=== PATIENT | male | born 1965 | race Two or more races ===

== ENCOUNTER 2018-02-04 22:43 | Inpatient (IN) | payer OTHER ==
[~2018-02-04] VITALS: Ht 170.2 cm; Wt 75.9 kg
[2018-02-04 23:32] LABS: Basophils # (auto) 0.1 uL; Basophils % (auto) 0.6 % (0.0-2.0); Eosinophils # (auto) 0 uL; Eosinophils % (auto) 0.3 % (0.0-7.0); Hematocrit 47.9 % (41.0-53.0); Hemoglobin 17.2 g/dL (13.5-17.5); Lymphocytes # (auto) 0.7 uL; Lymphocytes % (auto) 8.8 % (10.0-50.0); Mean Corpuscular Hemoglobin 32.6 pg (28.0-32.0); Mean Corpuscular Hgb Conc. 35.8 g/dL (32.0-36.0); Monocytes # (auto) 0.6 uL; Monocytes % (auto) 7.3 % (0.0-12.0); Nucleated Red Blood Cells % 0.1 %; Platelet Count (auto) 189 10^3/uL (140-450); Red Blood Cells 5.27 10^6/uL (4.5-5.90); White Blood Cell 8.4 10^3/uL (4.4-10.8)
[2018-02-04 23:48] LABS: Alanine Aminotransferase 56 U/L (16-61); Albumin 3.8 g/dL (3.4-5.0); Anion Gap 9 (5-15); Aspartate Aminotransferase 28 U/L (15-37); BUN/Creatinine Ratio 17.7; Blood Alcohol < 3.0 mg/dL (0-5); Blood Urea Nitrogen 14 mg/dL (7-18); Calcium 8.2 mg/dL (8.5-10.1); Carbon Dioxide 25 mmol/L (21-32); Chloride 105 mmol/L (98-107); GFR African American 131 mL/min; GFR Non-African American 109 mL/min; Glucose 131 mg/dL (74-106); Potassium 3.7 mmol/L (3.5-5.1); Salicylate < 1.7 mg/dL (2.8-20.0); Sodium 139 mmol/L (136-145)
[2018-02-04 23:50] LABS: Alkaline Phosphatase 91 U/L (45-117); Bilirubin, Total 0.5 mg/dL (0.2-1.0); Total Protein 7.2 g/dL (6.4-8.2)
[2018-02-04 23:59] LABS: Acetaminophen < 2.0 ug/mL (10-30)
[2018-02-05 00:09] LABS: Phenytoin (Dilantin) 50.9 ug/mL (10-20)
[2018-02-05] MEDS ORDERED: SODIUM CHLORIDE 0.9% 1,000 ML IV ONE (00:45)
[2018-02-05] MEDS ORDERED: D5W/SOD CHL 0.45% 1,000 ML IV ONE (03:45)
[2018-02-05 05:17] LABS: Alcohol, Urine < 3.0 mg/dL (0-5); Amphetamine Screen, Urine NEGATIVE (NEGATIVE); Barbiturate Scree,Urine NEGATIVE (NEGATIVE); Benzodiazephine Screen, Urine NEGATIVE (NEGATIVE); Cannabinoid Screen, Urine NEGATIVE (NEGATIVE); Cocaine Screen, Urine NEGATIVE (NEGATIVE); Opiate Scree,Urine NEGATIVE (NEGATIVE); Phencyclidine Screen, Urine NEGATIVE (NEGATIVE)
[2018-02-05 06:25] LABS: Albumin 3.5 g/dL (3.4-5.0); BUN/Creatinine Ratio 18.5; Bilirubin, Total 0.5 mg/dL (0.2-1.0); Calcium 7.8 mg/dL (8.5-10.1); Potassium 3.8 mmol/L (3.5-5.1); Total Protein 6.4 g/dL (6.4-8.2)
[2018-02-05 08:42] VITALS: BP 104/62
[2018-02-05 13:00] VITALS: BP 128/76
[2018-02-05] MEDS ORDERED: PHE100C PO ×2 (13:03)
[2018-02-05 17:00] VITALS: BP 131/77
[2018-02-05 22:00] VITALS: BP 120/70
[2018-02-06 05:30] VITALS: BP 134/80
[2018-02-06 06:40] LABS: Albumin 3.5 g/dL (3.4-5.0); BUN/Creatinine Ratio 14.5; Calcium 8.2 mg/dL (8.5-10.1)
[2018-02-06 06:46] LABS: Bilirubin, Total 0.5 mg/dL (0.2-1.0); Total Protein 6.6 g/dL (6.4-8.2)
[2018-02-06 08:00] VITALS: BP 111/72
[2018-02-06] MEDS ORDERED: PHEN100C70 PO (09:10)
[2018-02-06] MEDS ORDERED: PHE100C PO (09:10)
[2018-02-06 10:17] VITALS: BP 111/72
[2018-02-06 12:52] VITALS: BP 128/78
[2018-02-06 17:44] VITALS: BP 126/81
[2018-02-06 22:00] VITALS: BP 104/59
[2018-02-07 05:30] VITALS: BP 121/66
[2018-02-07 09:34] VITALS: BP 112/72
[2018-02-07] MEDS: D5W/SOD CHL 0.45% 1,000 ML IV SCH ×2 (10:31→18:00)
[2018-02-07] MEDS: DOCUSATE SOD 100 MG CAP PO PRN ×2 (12:15→13:01)
[2018-02-07 13:05] VITALS: BP 125/78
[2018-02-07 17:37] VITALS: BP 121/80
[2018-02-07 21:41] VITALS: BP 144/80
[2018-02-08] MEDS: D5W/SOD CHL 0.45% 1,000 ML IV SCH ×4 (00:03→19:54)
[2018-02-08 05:01] VITALS: BP 116/66
[2018-02-08 07:37] VITALS: BP 109/52
[2018-02-08 12:31] VITALS: BP 131/68
[2018-02-08 16:50] VITALS: BP 116/69
[2018-02-08 21:59] VITALS: BP 124/73
[2018-02-09] MEDS: D5W/SOD CHL 0.45% 1,000 ML IV SCH ×3 (02:04→15:44)
[2018-02-09 05:01] VITALS: BP 110/70
[2018-02-09 08:00] VITALS: BP 121/71
[2018-02-09 12:00] VITALS: BP 133/69
[2018-02-09 16:00] VITALS: BP 120/71
[2018-02-09 21:56] VITALS: BP 125/75
== END 2018-02-09 22:44 | disposition home or self-care (01) | DRG 917 ==
LOC: EDBD 22:43 → ER 22:50 → EEVIPCON 22:50 → TELE 22:51 → TELE-E-ADS 02-05 06:18 → EAST 02-05 21:05
PROVIDERS: ADMIT Internal Medicine; ATTEND Internal Medicine
DX: T42.0X1A Poisoning by hydantoin derivatives, accidental (unintentional), initial encounter (principal); G93.41 Metabolic encephalopathy; G40.909 Epilepsy, unspecified, not intractable, without status epilepticus; Y92.89 Other specified places as the place of occurrence of the external cause; Z90.49 Acquired absence of other specified parts of digestive tract
CPT/HCPCS: 36415; 70450; 71045; 80053; 80185; 80307; 80320; 80329; 82962; 84443; 85025; 87081; 93005; 96360; 96361; J7042